=== PATIENT | female | born 1995 | race Caucasian/White ===

== ENCOUNTER 2017-11-06 15:09 | Emergency (ER) | payer OTHER ==
--- NOTE | 2017-11-06 15:45 | ER Document Report ---
ED Medical Screen (RME) - General Chief Complaint: Pelvic Pain Stated Complaint: PELVIC PAIN Time Seen by Provider: 11/06/17 15:35 Notes: 22-year-old female patient reports being 6 weeks . No ultrasound yet. 2 days of left pelvic pain that is now radiating into the left anterior thigh. No bleeding. I have greeted and performed a rapid initial assessment of this patient. A comprehensive ED assessment and evaluation of the patient, analysis of test results and completion of the medical decision making process will be conducted by additional ED providers. TRAVEL OUTSIDE OF THE [place] IN LAST 30 DAYS: No Past Medical History - Social History Chew tobacco use (# tins/day): No Frequency of alcohol use: None Drug Abuse: None Renal/ Medical History: Denies: Hx Peritoneal Dialysis Past Surgical History: Reports: Hx Appendectomy Physical Exam - Vital signs Vitals: Temp Pulse Resp BP Pulse Ox 98.6 F 89 18 130/76 H 100 11/06/17 15:25 11/06/17 15:25 11/06/17 15:25 11/06/17 15:25 11/06/17 15:25 Course - Vital Signs Vital signs: Temp Pulse Resp BP Pulse Ox 98.6 F 89 18 130/76 H 100 11/06/17 15:25 11/06/17 15:25 11/06/17 15:25 11/06/17 15:25 11/06/17 15:25
[2017-11-06 16:18] LABS: ABSOLUTE EOSINOPHILS # (AUTO) 0.1 10^3/uL (0.0-0.6); ABSOLUTE LYMPHOCYTES (AUTO) 2.6 10^3/uL (0.5-4.7); ABSOLUTE MONOCYTES (AUTO) 1.1 10^3/uL (0.1-1.4); ABSOLUTE NEUT (AUTO) 4.4 10^3/uL (1.7-8.2); BASOPHILS % (AUTO) 0.4 % (0-2); EOSINOPHILS % (AUTO) 0.8 % (0-6); HEMATOCRIT 36.4 % (36.0-47.0); HEMOGLOBIN 12.5 g/dL (12.0-15.5); HGB HCT DIFFERENCE 1.1; LYMPHOCYTES % (AUTO) 31.4 % (13-45); MEAN CORPUSCULAR HEMOGLOBIN 30.2 pg (27.0-33.4); MEAN CORPUSCULAR HGB CONC 34.3 g/dL (32.0-36.0); MEAN CORPUSCULAR VOLUME 88 fl (80-97); MONOCYTES % (AUTO) 12.9 % (3-13); RED BLOOD COUNT 4.13 10^6/uL (3.72-5.28); RED CELL DISTRIBUTION WIDTH 12.9 % (11.5-14.0); SEGMENTED NEUTROPHILS % (AUTO) 54.5 % (42-78); WHITE BLOOD COUNT 8.2 10^3/uL (4.0-10.5)
[2017-11-06 16:34] LABS: APPEARANCE,URINE CLOUDY; BILIRUBIN,URINE NEGATIVE (NEGATIVE); GLUCOSE, URINE NEGATIVE (NEGATIVE); KETONES,URINE NEGATIVE (NEGATIVE); LEUKOCYTE ESTERASE,URINE LARGE (NEGATIVE); NITRITE,URINE NEGATIVE (NEGATIVE); PROTEIN,URINE NEGATIVE (NEGATIVE); URINE SPECIFIC GRAVITY 1.015; UROBILINOGEN,URINE NEGATIVE mg/dL (<2.0)
[2017-11-06 16:47] LABS: ALANINE AMINOTRANSFERASE 36 U/L (9-52); ALBUMIN 4.5 g/dL (3.5-5.0); ALKALINE PHOSPHATASE 70 U/L (38-126); ANION GAP 12 (5-19); ASPARTATE AMINO TRANSFERASE 28 U/L (14-36); BILIRUBIN,DIRECT 0.3 mg/dL (0.0-0.4); BILIRUBIN,TOTAL 0.7 mg/dL (0.2-1.3); BLOOD UREA NITROGEN 10 mg/dL (7-20); CALCIUM 9.6 mg/dL (8.4-10.2); CARBON DIOXIDE 26 mmol/L (22-30); CHLORIDE 102 mmol/L (98-107); CREATININE RESULT 0.72 mg/dL (0.52-1.25); GLUCOSE 91 mg/dL (75-110); POTASSIUM 4.3 mmol/L (3.6-5.0); SODIUM 139.9 mmol/L (137-145); TOTAL PROTEIN 7.3 g/dL (6.3-8.2)
--- NOTE | 2017-11-06 18:06 | ER Document Report ---
HPI - HPI Pain Level: 4 Notes: Patient is a 22-year-old female who presents the ED complaining of left back soreness and left lower pelvic discomfort 2 days. Patient states that she did notice one episode of spotting today, but that has since resolved. Patient states that she still eating and drinking without any difficulties. She is still urinating normally otherwise with a slight increase in frequency and having normal bowel movements. Patient is taking vitamins. Patient states that they just moved to the area recently and are scheduled for an appointment with an EPIC TRAINER in 2 weeks. Patient denies any other recent illness. Patient states that her pain is described as a soreness and does not radiate. + history of 1 miscarriage spring 2016 (pt did not know she was on nexplanon). Patient did have an appendectomy in the past. Patient denies any drug allergies. Denies any headache, fever, neck pain, URI, sore throat, chest pain, palpitations, syncope, cough, shortness of breath, wheeze, dyspnea, nausea/vomiting/diarrhea, urinary retention, dysuria, hematuria, loss of control of bowel or bladder, numbness/tingling, saddle anesthesia, muscle paralysis/weakness, or rash. - ROS Notes: REVIEW OF SYSTEMS: CONSTITUTIONAL : Denies fever, chills, or sweats. Denies recent illness. EENT: Denies eye, ear, throat, or mouth pain or symptoms. Denies nasal or sinus congestion or discharge. Denies throat, tongue, or mouth swelling or difficulty swallowing. CARDIOVASCULAR: Denies chest pain. Denies palpitations or racing or irregular heart beat. Denies ankle edema. RESPIRATORY: Denies cough, cold, or chest congestion. Denies shortness of breath, difficulty breathing, or wheezing. GASTROINTESTINAL: see hpi GENITOURINARY: see hpi FEMALE GENITOURINARY: see hpi MUSCULOSKELETAL: Denies back or neck pain or stiffness. Denies joint pain or swelling. SKIN: Denies rash, lesions or sores. NEUROLOGICAL: Denies confusion or altered mental status. Denies passing out or loss of consciousness. Denies dizziness or lightheadedness. Denies headache. Denies weakness or paralysis or loss of use of either side. Denies problems with gait or speech. Denies sensory loss, numbness, or tingling. Denies seizures. ALL OTHER SYSTEMS REVIEWED AND NEGATIVE. Dictation was performed using Dragon voice recognition software - DERM Skin Color: Normal, [place] Past Medical History - Social History Smoking Status: Never Smoker Chew tobacco use (# tins/day): No Frequency of alcohol use: None Drug Abuse: None Family History: Reviewed & Not Pertinent Patient has suicidal ideation: No Patient has homicidal ideation: No Renal/ Medical History: Denies: Hx Peritoneal Dialysis Past Surgical History: Reports: Hx Appendectomy Vertical Provider Document - CONSTITUTIONAL Agree With Documented VS: Yes Notes: PHYSICAL EXAMINATION: GENERAL: Well-appearing, well-nourished and in no acute distress. A&Ox4. Appears comfortable and moves w/o discomfort. LUNGS: Breath sounds clear to auscultation bilaterally and equal. No wheezes rales or rhonchi. HEART: Regular rate and rhythm without murmurs, rubs, gallops. ABDOMEN: Soft, nondistended abdomen. No guarding, no rebound. No masses appreciated. Normal bowel sounds present. + mild Lt CVA tenderness. + mild tenderness to palp to the left pelvic area. : deferred at this time Musculoskeletal: LE's b/l: FROM to passive/active. Strength 5+/5. Back: + mild tenderness to the left low back. No vertebral point tenderness or step-offs. No erythema or ecchymosis. SLR neg b/l. Extremities: No cyanosis, clubbing, or edema b/l. Peripheral pulses 2+. Capillary refill less than 3 seconds. NEUROLOGICAL: Normal speech, normal gait. Normal sensory, motor exams PSYCH: Normal mood, normal affect. SKIN: Warm, Dry, normal turgor, no rashes or lesions noted. - INFECTION CONTROL TRAVEL OUTSIDE OF THE [place] IN LAST 30 DAYS: No - RESPIRATORY O2 Sat by Pulse Oximetry: 100 Course - Re-evaluation Re-evalutation: 11/06/17 18:35 Patient is an afebrile, well-hydrated, 22-year-old female who presents to the ED with a suspected UTI and left lower pelvic pain not otherwise specified with ?threatened . Vitals are stable. PE is otherwise unremarkable. CBC, CMP unremarkable for any acute pathology. Patient has a beta-hCG at 8,017. Urine culture patient is tolerating p.o. without any difficulties. Patient's pending. Transvaginal ultrasound was unremarkable for any acute pathology at this time. Low suspicion/risk for acute appendicitis, bowel obstruction, acute cholecystitis, acute cholangitis, perforated diverticulitis, incarcerated hernia , pancreatitis, perforated ulcer, peritonitis, sepsis, pelvic inflammatory disease, ectopic , tubo-ovarian abscess, ovarian torsion, ruptured/ expandin AAA, meningitis, cauda equina syndrome, disc herniation causing severe spinal stenosis, epidural mass lesion/abscess, or other systemic emergent condition at this time. Patient is aware that her condition can change from initial presentation and she needs to monitor symptoms closely and seek medical attention if any acute changes. I will send her home with keflex to take as directed. Conservative measures otherwise for symptoms. Recheck with OBGYN in 2-3 days. Recheck with your PCM in 3-5 days. Return to the ED with any worsening/concerning symptoms otherwise as reviewed in discharge. Patient is in agreement. - Vital Signs Vital signs: Temp Pulse Resp BP Pulse Ox 98.6 F 89 18 130/76 H 100 11/06/17 15:25 11/06/17 15:25 11/06/17 15:25 11/06/17 15:25 11/06/17 15:25 - Laboratory Result Diagrams: 11/06/17 15:58 11/06/17 15:58 Laboratory results interpreted by me: 11/06/17 11/06/17 15:58 15:58 Beta HCG, Quant 8017.00 H Ur Leukocyte Esterase LARGE H Urine Ascorbic Acid 40 H Discharge - Discharge Clinical Impression: UTI (urinary tract infection) Qualifiers: Urinary tract infection type: site unspecified Hematuria presence: without hematuria Qualified Code(s): N39.0 - Urinary tract infection, site not specified Condition: Stable Disposition: HOME, SELF-CARE Instructions: Bleeding During Early ([facility]), Cephalexin ([facility]), Ob-Lace Cutter Doctors, Pelvic Pain in ([facility]) Additional Instructions: Maintain adequate fluid intake Maintain a healthy diet continue vitamins Take antibiotics as directed Your urine culture is pending and will be available in 2 days Monitor for any worsening symptoms Recheck with the EPIC TRAINER in 2-3 days Recheck with your PCM in 1 week Return to the ED with any worsening symptoms and/or development of fever, headache, chest pain, palpitations, syncope, shortness of breath, trouble breathing, abdominal pain, n/v/d, blood in stool/urine, vaginal bleeding, pelvic cramping or worsening pain, loss of control of bowel/bladder, urinary retention, muscle weakness/paralysis, saddle anesthesia, numbness/tingling, or other worsening symptoms that are concerning to you. Prescriptions: Cephalexin Monohydrate [Keflex 500 mg Capsule] 500 mg PO BID #20 capsule Forms: Elevated Blood Pressure Referrals: [facility] [Provider Group] - 11/08/17 [facility] [Provider Group] - Follow up as needed [facility] [Provider Group] - Follow up as needed
--- NOTE | 2017-11-06 18:23 | RADIOLOGY REPORT (SQ) ---
EXAM DESCRIPTION: U/S OB TRANSVAGINAL W/O DOP COMPLETED DATE/TIME: 11/06/2017 6:04 pm REASON FOR STUDY: 6wks, 2 days L pelvic pain COMPARISON: None. TECHNIQUE: Transvaginal static and realtime grayscale images acquired of the pelvis. Additional sean cted spectral and color Doppler images recorded. All images stored on PACs. bHCG: Not available. LIMITATIONS: None. FINDINGS: FETUS: pole not seen. Yolk sac not seen. No cardiac motion. . EGA: 5 weeks 5 days based upon the size of what appears to be the gestational sac. JOHNATHAN: 07/04/2018 FHR: Not present beats per minute. SUBCHORIONIC BLEED: No SIZE OF BLEED: Not applicable. UTERUS: No masses. No anomalies. CERVICAL LENGTH: 2.1 cm. Closed. RIGHT ADNEXA: Ovary not seen. No adnexal free fluid. No adnexal masses. LEFT ADNEXA: Ovary not seen. No adnexal free fluid. No adnexal masses. FREE FLUID: None. OTHER: No other significant finding. IMPRESSION: There appears to be an intrauterine gestational sac. The size suggested gestation 5 wee ks 5 days. pole and yolk sac were not present. Heart motion is not seen. Follow-up as clinic ally indicated. Trimester of : First - 0 to 13 weeks. TECHNICAL DOCUMENTATION: JOB ID: [id number]- All Rights Reserved
[2017-11-06 19:40] VITALS: BP 125/75
== END 2017-11-06 19:41 | disposition home or self-care (01) ==
LOC: ER 15:09
DX: O23.41 Unspecified infection of urinary tract in pregnancy, first trimester (principal); O26.851 Spotting complicating pregnancy, first trimester; O26.891 Other specified pregnancy related conditions, first trimester; R10.2 Pelvic and perineal pain
CPT/HCPCS: 36415; 76817; 80053; 81001; 84702; 85025; 87086; 99284

== ENCOUNTER 2018-01-08 22:18 | Emergency (ER) | payer OTHER, MEDICAID ==
[2018-01-09] MEDS ORDERED: PROMETHAZINE HCL 25 MG TABLET PO ONE (00:49)
--- NOTE | 2018-01-09 00:51 | ER Document Report ---
ED Medical Screen (RME) - General Chief Complaint: Vomiting Stated Complaint: STOMACH PAIN,WEAKNESS Time Seen by Provider: 01/09/18 00:48 Mode of Arrival: Ambulatory Information source: Patient Notes: 21-year-old female presents to ED for abdominal pain nausea vomiting and diarrhea that all started this morning. She is 15 weeks . 1 para 0. She states that she was vomiting every day until 3 weeks ago when she started likely just. She has not vomited since then until this morning. Pulse in the triage room is 110 sats 99 blood pressure is 118/75 and temperature is 99.3. She states she does feel a little lightheaded from not eating or drinking. Patient will be given some Phenergan and blood in urine drawn. I have greeted and performed a rapid initial assessment of this patient. A comprehensive ED assessment and evaluation of the patient, analysis of test results and completion of medical decision making process will be conducted by an additional ED providers. TRAVEL OUTSIDE OF THE [place] IN LAST 30 DAYS: No - Related Data Allergies/Adverse Reactions: No Known Allergies Allergy (Verified 11/06/17 15:59) Past Medical History Renal/ Medical History: Denies: Hx Peritoneal Dialysis Past Surgical History: Reports: Hx Appendectomy Physical Exam - Vital signs Vitals: Temp Pulse Resp BP Pulse Ox 99.3 F 110 H 18 118/75 98 01/09/18 00:47 01/09/18 00:47 01/09/18 00:47 01/09/18 00:47 01/09/18 00:47 Course - Vital Signs Vital signs: Temp Pulse Resp BP Pulse Ox 99.3 F 110 H 18 118/75 98 01/09/18 00:47 01/09/18 00:47 01/09/18 00:47 01/09/18 00:47 01/09/18 00:47
[2018-01-09 03:38] LABS: ABSOLUTE LYMPHOCYTES (AUTO) 0.8 10^3/uL (0.5-4.7); ABSOLUTE MONOCYTES (AUTO) 0.5 10^3/uL (0.1-1.4); ABSOLUTE NEUT (AUTO) 7.6 10^3/uL (1.7-8.2); BASOPHILS % (AUTO) 0.3 % (0-2); EOSINOPHILS % (AUTO) 0.1 % (0-6); HEMATOCRIT 37.7 % (36.0-47.0); HEMOGLOBIN 12.9 g/dL (12.0-15.5); LYMPHOCYTES % (AUTO) 8.8 % (13-45); MEAN CORPUSCULAR HEMOGLOBIN 29.9 pg (27.0-33.4); MEAN CORPUSCULAR HGB CONC 34.2 g/dL (32.0-36.0); MEAN CORPUSCULAR VOLUME 87 fl (80-97); MONOCYTES % (AUTO) 5.4 % (3-13); PLATELET COUNT 210 10^3/uL (150-450); RED BLOOD COUNT 4.32 10^6/uL (3.72-5.28); RED CELL DISTRIBUTION WIDTH 12.9 % (11.5-14.0); SEGMENTED NEUTROPHILS % (AUTO) 85.4 % (42-78); TOTAL CELLS COUNTED % (AUTO) 100 %
[2018-01-09 03:55] LABS: ALANINE AMINOTRANSFERASE 35 U/L (9-52); ALBUMIN 4.3 g/dL (3.5-5.0); ALKALINE PHOSPHATASE 57 U/L (38-126); ANION GAP 12 (5-19); ASPARTATE AMINO TRANSFERASE 28 U/L (14-36); BILIRUBIN,DIRECT 0.3 mg/dL (0.0-0.4); BLOOD UREA NITROGEN 9 mg/dL (7-20); CALCIUM 10.4 mg/dL (8.4-10.2); CARBON DIOXIDE 23 mmol/L (22-30); CHLORIDE 103 mmol/L (98-107); GLUCOSE 102 mg/dL (75-110); LIPASE 76.3 U/L (23-300); SODIUM 137.6 mmol/L (137-145); TOTAL PROTEIN 7.5 g/dL (6.3-8.2)
[2018-01-09 04:00] LABS: APPEARANCE,URINE CLOUDY; BILIRUBIN,URINE NEGATIVE (NEGATIVE); GLUCOSE, URINE NEGATIVE (NEGATIVE); KETONES,URINE 80 mg/dL (NEGATIVE); LEUKOCYTE ESTERASE,URINE SMALL (NEGATIVE); NITRITE,URINE NEGATIVE (NEGATIVE); PROTEIN,URINE 30 mg/dL (NEGATIVE); URINE SPECIFIC GRAVITY 1.031
[2018-01-09 04:02] LABS: COLOR,URINE DARK YELLOW
[2018-01-09] MEDS: NORMAL SALINE 1000 ML 1,000 ML IV PRN ×2 (06:27→06:50)
[2018-01-09] MEDS ORDERED: DIPHENHYDRAMINE HCL 50 MG/ML VIAL IV ONE (07:27)
[2018-01-09] MEDS ORDERED: METOCLOPRAMIDE HCL INJ/PF 10 MG/2 ML SDV IV ONE (07:27)
--- NOTE | 2018-01-09 09:30 | ER Document Report ---
ED General - General Chief Complaint: Vomiting Stated Complaint: STOMACH PAIN,WEAKNESS Time Seen by Provider: 01/09/18 00:48 Mode of Arrival: Ambulatory TRAVEL OUTSIDE OF THE [place] IN LAST 30 DAYS: No - HPI Patient complains to provider of: Nausea vomiting diarrhea Notes: Patient coming in approximately 15 weeks states she is having nausea vomiting diarrhea. Patient states she initially during first did havePatient coming in approximately 15 weeks states she is having nausea vomiting diarrhea. Patient states she initially during the first few days the did have nausea vomiting however the past patient states was doing better however now is vomiting unable to tolerate anything p.o. Patient is on likely just states that is not relieving her symptoms. Patient was seen in triage and given a tablet of Phenergan however states she threw this up as well. Denies any recent travel denies any sick contacts. Denies fevers chills - Related Data Allergies/Adverse Reactions: No Known Allergies Allergy (Verified 11/06/17 15:59) Past Medical History - General Information source: Patient - Social History Smoking Status: Never Smoker Family History: Reviewed & Not Pertinent Patient has suicidal ideation: No Patient has homicidal ideation: No Renal/ Medical History: Denies: Hx Peritoneal Dialysis Past Surgical History: Reports: Hx Appendectomy Review of Systems - Review of Systems Constitutional: No symptoms reported EENT: No symptoms reported Cardiovascular: No symptoms reported Respiratory: No symptoms reported Gastrointestinal: Nausea, Vomiting Genitourinary: No symptoms reported Female Genitourinary: No symptoms reported Musculoskeletal: No symptoms reported Skin: No symptoms reported Hematologic/Lymphatic: No symptoms reported Neurological/Psychological: No symptoms reported -: Yes All other systems reviewed and negative Physical Exam - Vital signs Vitals: Temp Pulse Resp BP Pulse Ox 99.3 F 110 H 18 118/75 98 01/09/18 00:47 01/09/18 00:47 01/09/18 00:47 01/09/18 00:47 01/09/18 00:47 Interpretation: Normal - General General appearance: Appears well, Alert - HEENT Head: Normocephalic, Atraumatic Eyes: Normal Pupils: PERRL - Respiratory Respiratory status: No respiratory distress Chest status: Nontender Breath sounds: Normal Chest palpation: Normal - Cardiovascular Rhythm: Regular Heart sounds: Normal auscultation Murmur: No - Abdominal Inspection: Normal Distension: No distension Bowel sounds: Normal Tenderness: Nontender Organomegaly: No organomegaly - Back Back: Normal, Nontender - Extremities General upper extremity: Normal inspection, Nontender, Normal color, Normal ROM , Normal temperature General lower extremity: Normal inspection, Nontender, Normal color, Normal ROM , Normal temperature, Normal weight bearing. No: Xiomara's sign - Neurological Neuro grossly intact: Yes Cognition: Normal Orientation: AAOx4 [place] Coma Scale Eye Opening: Spontaneous [place] Coma Scale Verbal: Oriented [place] Coma Scale Motor: Obeys Commands [place] Coma Scale Total: 15 Speech: Normal Motor strength normal: LUE, RUE, LLE, RLE Sensory: Normal - Psychological Associated symptoms: Normal affect, Normal mood - Skin Skin Temperature: Warm Skin Moisture: Dry Skin Color: Normal Course - Re-evaluation Re-evalutation: 01/09/18 14:57 heart tones 160 on bedside ultrasound. Patient was given IV fluids. After IV fluids along with Reglan patient was able tolerate p.o. Will discharge patient home with Zofran and Reglan. Patient is follow-up with OB/ [facility]. - Vital Signs Vital signs: Temp Pulse Resp BP Pulse Ox 99.6 F 100 18 124/62 98 01/09/18 06:57 01/09/18 09:45 01/09/18 09:45 01/09/18 09:45 01/09/18 09:45 - Laboratory Result Diagrams: 01/09/18 03:30 01/09/18 03:30 Laboratory results interpreted by me: 01/09/18 01/09/18 01/09/18 03:30 03:30 03:30 Seg Neutrophils % 85.4 H Lymphocytes % 8.8 L Calcium 10.4 H Urine Protein 30 H Urine Ketones 80 H Urine Urobilinogen 2.0 H Ur Leukocyte Esterase SMALL H Urine Ascorbic Acid 20 H Urine HCG, Qual POSITIVE H Discharge - Discharge Clinical Impression: Vomiting affecting Disposition: HOME, SELF-CARE Instructions: Reglan (OM), Vomiting (OM) Additional Instructions: Please take medication as prescribed. Return to the ER symptoms worsen. For nausea and vomiting during I recomment: Start with 10-12.5 mg of pyridoxine (vitamin B6) three times a day for 2 days. If not fully effective, Increase to 12.5 mg of pyridoxine four times a day for 2 days. If not fully effective, Increase to 25 mg of pyridoxine three times a day for 2 days. If not fully effective, Continue 25 mg pyridoxine 3 times a day, and add 12.5 mg of doxylamine before bedtime each day for 2 days. If not fully effective, Continue 25 mg pyridoxine 3 times a day, and take 12.5 mg of doxylamine twice a day. If not fully effective, Continue 25 mg pyridoxine 3 times a day, and take 12.5 mg of doxylamine three times a day. If not fully effective, Continue 25 mg pyridoxine 3 times a day, and 12.5 mg of doxylamine 3 times a day , while adding Emetrol, one to two tablespoons (15-30 cc) taken once or twice a day as needed. (Emetrol is an [id number] mixture of sugar syrups and phosphoric acid [phosphorylated carbohydrate solution]) that acts by soothing the actual wall of the gastrointestinal tract). If not fully effective, Consult with your doctor. Prescriptions: Metoclopramide HCl [Reglan] 5 mg PO Q6 #30 tablet Ondansetron [Zofran Odt] 4 mg PO Q6 PRN #30 tab.rapdis PRN Reason: For Nausea/Vomiting Promethazine HCl [Phenergan 25 mg Supp.rect] 1 supp LA Q6H #10 supp.rect Referrals: FRANDY SEALS MD [Primary Care Provider] - Follow up as needed
[2018-01-09 09:59] VITALS: BP 124/62
== END 2018-01-09 09:45 | disposition home or self-care (01) ==
LOC: ER 22:18
DX: O21.9 Vomiting of pregnancy, unspecified (principal); Z3A.15 15 weeks gestation of pregnancy
CPT/HCPCS: 99284; 96360; 36415; 83690; 85025; 81025; 80053; 81001; J1200; J2765; J7030

== ENCOUNTER 2018-06-06 13:14 | Outpatient (CLI) | payer MEDICAID ==
[2018-06-06 14:59] LABS: APPEARANCE,URINE CLOUDY; BILIRUBIN,URINE NEGATIVE (NEGATIVE); GLUCOSE, URINE NEGATIVE (NEGATIVE); KETONES,URINE NEGATIVE (NEGATIVE); LEUKOCYTE ESTERASE,URINE LARGE (NEGATIVE); NITRITE,URINE NEGATIVE (NEGATIVE); PROTEIN,URINE 30 mg/dL (NEGATIVE); URINE SPECIFIC GRAVITY 1.017
[2018-06-06 15:00] LABS: COLOR,URINE YELLOW
[2018-06-06 15:08] LABS: URINE AMPHETAMINES SCREEN NEGATIVE; URINE BENZODIAZEPINES SCREEN NEGATIVE; URINE COCAINE SCREEN NEGATIVE; URINE MARIJUANA (THC) SCREEN NEGATIVE; URINE METHADONE SCREEN NEGATIVE; URINE PHENCYCLIDINE SCREEN NEGATIVE
[2018-06-06 15:13] LABS: URINE BARBITURATES SCREEN UNCONFIRMED POSITIVE
[2018-06-06] MEDS ORDERED: RINGERS SOLUTION,LACTATED 1,000 ML IV PRN (15:24)
[2018-06-06] MEDS ORDERED: CEFTRIAXONE INJ 1000 MG VIAL IV ONE (15:24)
[2018-06-06] MEDS ORDERED: RINGERS SOLUTION,LACTATED 1,000 ML IV ONE (15:24)
[2018-06-06] MEDS ORDERED: CEFTRIAXONE INJ 1000 MG VIAL ONE (15:40)
[2018-06-06] MEDS ORDERED: CEFTRIAXONE SODIUM 1,000 MG in DEXTROSE 5%-WATER 50 ML IV ONE (16:00)
--- NOTE | 2018-06-06 17:22 | Non Stress Test Report ---
Non Stress Test Datetime Report Generated by CPN: 06/06/2018 17:22 DEMOGRAPHIC EGA NST: 35.2 INDICATION Indication for Study: labor; Ordered by Provider VITAL SIGNS Temperature - NST: 98.3 Pulse - NST: 106 RESP - NST: 14 NBPSYS NST: 122 NBPDIA NST: 76 MONITORING Monitor Explained: Monitor Explained; Test Explained; Patient Verbalized Understanding Time on Monitor: 06/06/2018 13:30 Time off Monitor: 06/06/2018 15:49 NST Duration: 139 NST INTERVENTIONS NST Interventions: PO Hydration; Reposition Patient Physician Notified NST: Dr. Brock BABY A: [id number] BABY A Movement : Present Contraction Frequency : rare FHR Baseline : 130 Accelerations : 15X15 Decelerations : None Variability : Moderate 6-25bpm NST Review: Meets Criteria for Reactive NST NST Review and Verified By : DULCE Norris Results: Reactive NST REPORT Report Trigger: Send Report
== END 2018-06-06 17:25 | disposition home or self-care (01) ==
LOC: LC 13:14
PROVIDERS: ATTEND Student in an Organized Health Care Education/Training Program
PROC: 4A1HXCZ Monitoring of Products of Conception, Cardiac Rate, External Approach (ICD-10-PCS; principal; 2018-06-06)
DX: O47.03 False labor before 37 completed weeks of gestation, third trimester (principal); O23.43 Unspecified infection of urinary tract in pregnancy, third trimester; O99.283 Endocrine, nutritional and metabolic diseases complicating pregnancy, third trimester; E86.0 Dehydration; Z3A.35 35 weeks gestation of pregnancy
CPT/HCPCS: 59025; 87086; 81001; 80307; J0696

== ENCOUNTER 2018-06-11 15:02 | Outpatient (CLI) | payer MEDICAID ==
[2018-06-11 16:07] LABS: AMNISURE (ROM) NEGATIVE (NEGATIVE)
--- NOTE | 2018-06-11 16:32 | Non Stress Test Report ---
Non Stress Test Datetime Report Generated by CPN: 06/11/2018 16:31 DEMOGRAPHIC EGA NST: 36.0 INDICATION Indication for Study: Other Indication for Study (NST) Other: labor check VITAL SIGNS Temperature - NST: 98.5 Pulse - NST: 83 RESP - NST: 14 NBPSYS NST: 120 NBPDIA NST: 74 MONITORING Monitor Explained: Monitor Explained; Test Explained; Patient Verbalized Understanding Time on Monitor: 06/11/2018 15:35 Time off Monitor: 06/11/2018 16:18 NST Duration: 43 NST INTERVENTIONS NST Interventions: PO Hydration BABY A: [id number] BABY A Movement : Present Contraction Frequency : rare FHR Baseline : 135 Accelerations : 15X15 Decelerations : None Variability : Moderate 6-25bpm NST Review: Meets Criteria for Reactive NST NST Review and Verified By : Virginia Garrido RN NST Results: Reactive NST REPORT Report Trigger: Send Report
== END 2018-06-11 16:20 | disposition home or self-care (01) ==
LOC: LC 15:02
PROVIDERS: ATTEND Obstetrics & Gynecology
PROC: 4A1HXCZ Monitoring of Products of Conception, Cardiac Rate, External Approach (ICD-10-PCS; principal; 2018-06-11)
DX: Z36.89 Encounter for other specified antenatal screening (principal)
CPT/HCPCS: 59025; 84112; Q0114

== ENCOUNTER 2018-06-11 23:00 | Inpatient (IN) | payer MEDICAID ==
[2018-06-11] MEDS ORDERED: RINGERS SOLUTION,LACTATED 1,000 ML IV ONE (23:46)
[2018-06-11] MEDS ORDERED: PENICILLIN G POTASSIUM 5,000,000 UNIT in DEXTROSE 5%-WATER 100 ML IV ONE (23:46)
[2018-06-11] MEDS ORDERED: RINGERS SOLUTION,LACTATED 1,000 ML IV PRN (23:46)
[2018-06-11 23:59] LABS: APPEARANCE,URINE CLEAR; BILIRUBIN,URINE NEGATIVE (NEGATIVE); COLOR,URINE YELLOW; GLUCOSE, URINE NEGATIVE (NEGATIVE); KETONES,URINE NEGATIVE (NEGATIVE); LEUKOCYTE ESTERASE,URINE TRACE (NEGATIVE); NITRITE,URINE NEGATIVE (NEGATIVE); PROTEIN,URINE NEGATIVE (NEGATIVE); UROBILINOGEN,URINE NEGATIVE mg/dL (<2.0)
[2018-06-12 00:10] LABS: ABSOLUTE EOSINOPHILS # (AUTO) 0.1 10^3/uL (0.0-0.6); ABSOLUTE LYMPHOCYTES (AUTO) 2.8 10^3/uL (0.5-4.7); ABSOLUTE MONOCYTES (AUTO) 1.4 10^3/uL (0.1-1.4); ABSOLUTE NEUT (AUTO) 7.4 10^3/uL (1.7-8.2); BASOPHILS % (AUTO) 0.3 % (0-2); EOSINOPHILS % (AUTO) 0.9 % (0-6); HEMOGLOBIN 10.6 g/dL (12.0-15.5); LYMPHOCYTES % (AUTO) 23.7 % (13-45); MEAN CORPUSCULAR HEMOGLOBIN 30.2 pg (27.0-33.4); MEAN CORPUSCULAR HGB CONC 34.1 g/dL (32.0-36.0); MEAN CORPUSCULAR VOLUME 88 fl (80-97); PLATELET COUNT 211 10^3/uL (150-450); RED CELL DISTRIBUTION WIDTH 13.4 % (11.5-14.0); SEGMENTED NEUTROPHILS % (AUTO) 63.1 % (42-78); TOTAL CELLS COUNTED % (AUTO) 100 %; WHITE BLOOD COUNT 11.7 10^3/uL (4.0-10.5)
[2018-06-12] MEDS ORDERED: PENICILLIN G-K 5 MILLION UNIT VIAL ONE ×2 (00:24→04:34)
[2018-06-12] MEDS ORDERED: MISOPROSTOL 0.2 MG TABLET ONE (00:33)
[2018-06-12] MEDS ORDERED: LIDOCAINE 1% INJ-PF (10 MG/ML) 30 ML SDV ONE (00:33)
[2018-06-12] MEDS ORDERED: OXYTOCIN/NORMAL SALINE 20 UNIT/1,000 ML RTUINJ ONE (00:33)
[2018-06-12 00:38] LABS: URINE AMPHETAMINES SCREEN NEGATIVE; URINE BARBITURATES SCREEN NEGATIVE; URINE BENZODIAZEPINES SCREEN NEGATIVE; URINE COCAINE SCREEN NEGATIVE; URINE MARIJUANA (THC) SCREEN NEGATIVE; URINE METHADONE SCREEN NEGATIVE; URINE PHENCYCLIDINE SCREEN NEGATIVE
[2018-06-12] MEDS ORDERED: MAG HYDROX/AL HYDROX/SIMETH SUSP 30 ML UDCUP ONE (02:28)
[2018-06-12] MEDS ORDERED: MAG HYDROX/AL HYDROX/SIMETH SUSP 30 ML UDCUP PO ONE (02:30)
[2018-06-12] MEDS ORDERED: PENICILLIN G POTASSIUM 2,500,000 UNIT in DEXTROSE 5%-WATER 50 ML IV SCH (03:46)
[2018-06-12] MEDS ORDERED: EPHEDRINE SULFATE INJ 50 MG/1 ML AMPULE ONE (04:54)
[2018-06-12] MEDS ORDERED: BUPIVACAINE HCL 0.25 % INJ/PF (2.5 MG/1 ML) 30 ML VIAL ONE (04:54)
[2018-06-12] MEDS ORDERED: FENTANYL/BUPIVACAINE/NS/PF 300 MCG/150 ML RTUINJ EPI ONE (04:54)
[2018-06-12] MEDS ORDERED: OXYTOCIN/NORMAL SALINE 20 UNIT/1,000 ML RTUINJ IV PRN ×2 (04:56→07:40)
[2018-06-12] MEDS ORDERED: FENTANYL CITRATE INJ/PF 100 MCG/2 ML AMPUL ONE (05:18)
--- NOTE | 2018-06-12 07:06 | Admission Physical ---
Datetime Report Generated by CPN: 06/12/2018 07:06 CURRENT ADMISSION Chief Complaint: Uterine Contractions; Suspected Ruptured Membranes Indication for Induction: PROM Admit Impression : , Intrauterine ; Ruptured Membranes Admit Plan: Admit to Unit; Initiate Labor Augmentation Protocol ALLERGIES Medication Allergies: No Medication Allergies: No Known Allergies (06/12/2018) Latex: No Latex Allergies OBSTETRICAL HISTORY EDC: 07/09/2018 00:00 : 1 Para: 0 Term: 0 : 0 SAB: 0 IAB: 0 Ectopic: 0 Livin Cesareans: 0 VBACs: 0 Multiple Births: 0 Gestational Diabetes: No Rh Sensitization: No Incompetent Cervix: No FLORENTIN: No Infertility: No ART Treatment: No Uterine Anomaly: No IUGR: No Hx Previous C/S: No Macrosomia: No Hx Loss/Stillborn: No PIH: No Hx : No Placenta Previa/Abruption: No Depression/PP Depression: No PTL/PROM: No Post Hemorrhage: No Current Procedures: Ultrasound; NST Obstetrical History Comments: primigravida SEE RECORDS Alcohol: No Marijuana : No Cocaine: No Other Illicit Drugs: No Cigarettes: Former Smoker. [id number] MEDICAL HISTORY Diabetes: No Blood Transfusion: No Pulmonary Disease (Asthma, TB): No Breast Disease: No Hypertension: No Secondary Connector Armature Surgery: No Heart Disease: No Hosp/Surgery: No Autoimmune Disorder: No Anesthetic Complications: No Kidney Disease: Yes Abnormal Pap Smear: No Neuro/Epilepsy: No Psychiatric Disorders: No Other Medical Diseases: No Hepatitis/Liver Disease: No Significant Family History: No Varicosities/Phlebitis: No Trauma/Violence : No Thyroid Dysfunction: No Medical History Comments: h/o migraines-on fioricet, GERD on zantac; failed 1hr gtt, passed 3 hour INFECTIOUS HISTORY Gonorrhea: No Genital Herpes: No Chlamydia: No Tuberculosis: No Syphilis: No Hepatitis: No HIV/AIDS Exposure: No Rash or Viral Illness: No HPV: No PHYSICAL EXAM General: Normal HEENT: Normal Neurologic: Normal Thyroid: Normal Heart: Normal Lungs: Normal Breast: Normal Back: Normal Abdomen: Normal Genitourinary Exam: Normal Extremities: Normal DTRs: Normal Pelvic Type: Adequate Vital Signs: Reviewed; Within Normal Limits VAGINAL EXAM Dilatation: 6 Effacement: 100 Station: -1 MEMBRANES Pooling: Positive Membranes: Ruptured Amniotic Fluid Color: Clear FETUS A EGA: 36.1 Monitoring: External US FHR- Baseline: 140 Variability: Moderate 6-25bpm Accelerations: 15X15 Decelerations: None FHR Category: Category I Estimated Weight (gm): 3200 Presentation: Vertex PLANS FOR LABOR AND DELIVERY Labor and Delivery: None Pain Management: Epidural Feeding Preference: Breast Benefit of Breast Feed Discussed: Yes Circumcision: N/A INFORMED CONSENT Signature: with User ID: [email or web address]
[2018-06-12] MEDS ORDERED: ACETAMINOPHEN 650 MG SUPP.RECT PR PRN (07:40)
[2018-06-12] MEDS ORDERED: MAGNESIUM HYDROXIDE SUSP 30 ML UDCUP PO PRN (07:40)
[2018-06-12] MEDS ORDERED: NA PHOS,M-B/NA PHOS,DI-BA (ADULT) 133 ML ENEMA PR PRN (07:40)
[2018-06-12] MEDS ORDERED: GLYCERIN/WITCH HAZEL LEAF 1 EACH MED..PAD TP PRN (07:40)
[2018-06-12] MEDS ORDERED: ACETAMINOPHEN WITH CODEINE #3 TABLET PO PRN ×2 (07:40)
[2018-06-12] MEDS ORDERED: ZOLPIDEM TARTRATE 5 MG TABLET PO PRN (07:40)
[2018-06-12] MEDS ORDERED: PROMETHAZINE HCL INJ 25 MG/1 ML VIAL IV PRN (07:40)
[2018-06-12] MEDS ORDERED: PROMETHAZINE HCL 25 MG TABLET PO PRN (07:40)
[2018-06-12] MEDS ORDERED: MEASLES,MUMPS&RUBELLA VACC/PF 0.5 ML VIAL SUBCUT PRN (07:40)
[2018-06-12] MEDS ORDERED: DIPHENHYDRAMINE HCL 25 MG CAPSULE PO PRN (07:40)
[2018-06-12] MEDS ORDERED: BENZOCAINE/MENTHOL AEROSOL SPRAY 56 ML TOP PRN (07:40)
[2018-06-12] MEDS ORDERED: DIBUCAINE 1% OINTMENT 28 GM TP PRN (07:40)
[2018-06-12] MEDS ORDERED: PROMETHAZINE HCL 25 MG SUPP.RECT PR PRN (07:40)
[2018-06-12] MEDS ORDERED: DIPH/PERTUSS(ACELL)/TETANUS VAC/PF 0.5 ML SYR (>=10YO) IM PRN (07:40)
[2018-06-12] MEDS ORDERED: PSEUDOEPHEDRINE HCL 30 MG TABLET PO PRN (07:40)
--- NOTE | 2018-06-12 09:09 | Delivery Summary ---
Del Sum A-C Datetime Report Generated by CPN: 06/12/2018 09:09 DELIVERY PERSONNEL DELIVERY PERSONNEL: [id number] Delivery Doctor:: Sariah Garrido MD Labor and Delivery Nurse:: Kaylynn Sewell RNstunner animal Nurse:: Alondra Hernandez RN Nursery Nurse:: Tamar Rivera RN MSN Cyber Defense Analyst/PUBLIC INFORMATION SPECIALIST: Blanquita Cameron, MACHINE SPRING FORMER MATERNAL INFORMATION Delivery Anesthesia: Epidural Medications After Delivery: Pitocin Drip 20 Units/1000ml NSS Estimated Blood Loss (ml): 300 Maternal Complications: Premature Rupture of Membranes LABOR SUMMARY EDC: 07/09/2018 00:00 No. Babies in Womb: 1 Attempted: No Labor Anesthesia: Epidural LABOR INFORMATION Reason for Induction: Not Applicable Onset of Labor: 06/11/2018 23:30 Complete Dilatation: 06/12/2018 06:08 Oxytocin: Augmentation Group B Beta Strep: unknown Antibiotics # of Doses: 2 Antibiotics Time of Last Dose: 04:40 Name of Antibiotic Given: penicillin Steroids Given: None Reason Steroids Not Administered: Not Applicable MEMBRANES Membranes Rupture Method: Spontaneous Rupture of Membranes: 06/11/2018 22:30 Length of Rupture (hr): 7.98 Amniotic Fluid Color: Clear Amniotic Fluid Amount: Moderate Amniotic Fluid Odor: None STAGES OF LABOR Stage 1 hr: 6 Stage 1 min: 38 Stage 2 hr: 0 Stage 2 min: 21 Stage 3 hr: 0 Stage 3 min: 4 Total Time in Labor hr: 7 Total Time in Labor min: 3 VAGINAL DELIVERY Episiotomy: None Laceration #1: None Laceration Extension #1: N/A Laceration Repair: Not Applicable Sponge Count Correct: N/A Sharps Count Correct: Yes CSECTION DELIVERY Primary Indication: N/A Secondary Indication: N/A CSection Incidence: N/A Labor: N/A Elective: N/A CSection Incision: N/A BABY A INFORMATION Delivery Date/Time: 06/12/2018 06:29 Method of Delivery: Vaginal Born in Route : No : N/A Forceps: N/A Vacuum Extraction: N/A Shoulder Dystocia : No PRESENTATION/POSITION BABY A Presentation: Cephalic Cephalic Presentation: Vertex Vertex Position: Left Occipital Anterior Breech Presentation: N/A PLACENTA INFORMATION BABY A Placenta Delivery Time : 06/12/2018 06:33 Placenta Method of Delivery: Spontaneous Placenta Status: Delivered SCORES BABY A Heart Rate 1 min: >100 bpm Resp Effort 1 min: Good Cry Reflex Irritability 1 min: Cough or Sneeze or Pulls Away Muscle Tone 1 min: Active Motion Color 1 min: Blue/Pale Resuscitation Effort 1 min: Tactile Stimulation SCORE 1 MIN: 8 Heart Rate 5 min: >100 bpm Resp Effort 5 min: Good Cry Reflex Irritability 5 min: Cough or Sneeze or Pulls Away Muscle Tone 5 min: Active Motion Color 5 min: Body [place], Extremities Blue Resuscitation Effort 5 min: Tactile Stimulation SCORE 5 MIN: 9 INFANT INFORMATION BABY A Gestational Age at Delivery: 36.1 Gestational Status: Late - 34- 36.6 Weeks Outcome : Liveborn Condition : Stable Sex: Female IDENTIFICATION BABY A Verification Date/Time: 06/12/2018 06:49 ID Band Number: [id number] Mother's Name Verified: Yes RN Verifying Infant: SChilo [place], RNC _ T. Mary, RN WEIGHT/LENGTH BABY A Infant Birthweight (gm): 2410 Weight (lb): 5 Infant Weight (oz): 5 Infant Length (in): 17.00 Length (cm): 43.18 CORD INFORMATION BABY A No. Cord Vessels: 3 Nuchal Cord : N/A Cord Blood Taken: Yes-For Storage (Mom's Blood type +) Infant Suction: Mouth; Nose ASSESSMENT BABY A Infant Complications: None Physical Findings at Delivery: Within Normal Limits Respirations: Appears Normal Skin to Skin: Yes Skin to Skin Time (min): 70 [employer] Librarian/ALS Called : No Care By: Shravan Rivera RN Transferred To: Remains with Mother BABY B INFORMATION : N/A SIGNATURES Signature: with User ID: [email or web address]
[2018-06-12] MEDS: FERROUS SULFATE 325 MG TABLET PO SCH ×2 (11:19→18:51)
[2018-06-12] MEDS: PRENATAL VITAMIN W DHA CAPSULE PO SCH (11:19)
[2018-06-12] MEDS: FAMOTIDINE 20 MG TABLET PO SCH ×2 (11:19→22:45)
[2018-06-12] MEDS: SENNOSIDES/DOCUSATE 8.6-50 MG 1 EACH TABLET PO SCH (11:20)
[2018-06-12] MEDS: DOCUSATE SODIUM 100 MG CAPSULE PO SCH ×2 (11:20→18:51)
[2018-06-12] MEDS: IBUPROFEN 800 MG TABLET PO SCH ×2 (14:24→22:44)
[2018-06-13] MEDS: IBUPROFEN 800 MG TABLET PO SCH ×3 (06:24→21:58)
[2018-06-13 07:47] LABS: HEMATOCRIT 32.8 % (36.0-47.0); MEAN CORPUSCULAR HGB CONC 33.6 g/dL (32.0-36.0); MEAN CORPUSCULAR VOLUME 89 fl (80-97); PLATELET COUNT 221 10^3/uL (150-450); RED BLOOD COUNT 3.68 10^6/uL (3.72-5.28); RED CELL DISTRIBUTION WIDTH 13.8 % (11.5-14.0); WHITE BLOOD COUNT 12.6 10^3/uL (4.0-10.5)
--- NOTE | 2018-06-13 09:49 | PDOC PROGRESS REPORT ---
Subjective-OB Progress Note for:: 06/13/18 Subjective: pt states she feels well some nipple pain with breast feeding no other problems Physical Exam (OB) Vital Signs: Temp Pulse Resp BP Pulse Ox 97.7 F 74 16 121/72 98 06/13/18 08:00 06/13/18 08:00 06/13/18 08:00 06/13/18 08:00 06/13/18 08:00 Intake & Output 06/12/18 06/13/18 06/14/18 06:59 06:59 06:59 Intake Total 500 Balance 500 Weight 82.2 kg - Lochia Lochia Amount: Scant < 10 ml Lochia Color: Rubra/Red - Abdomen Description: Soft, Round Hernia Present: No Bowel Sounds: Normoactive Flatus Presence: Present Stool: Yes Fundal Description: Firm, Midline Fundal Height: u/u - u/2 - Respiratory Breath sounds: Clear - Extremities Calf: Normal, Nontender Objective-Diagnostic Laboratory: 06/13/18 07:30 06/13/18 07:30 WBC 12.6 H RBC 3.68 L Hgb 11.0 L Hct 32.8 L MCV 89 MCH 30.0 MCHC 33.6 RDW 13.8 Plt Count 221 Assessment and Plan(PN) - Assessment and Plan (1) premature rupture of membranes Is this a current diagnosis for this admission?: Yes - Time Spent with Patient Time with patient: Less than 15 minutes - Disposition Anticipated Discharge: Home Within: within 24 hours Disposition: continue present plan of managment
--- NOTE | 2018-06-13 10:37 | PDOC DISCHARGE SUMMARY ---
Final Diagnosis Discharge Date: 06/14/18 - Final Diagnosis (1) premature rupture of membranes Is this a current diagnosis for this admission?: Yes (2) Vaginal delivery Is this a current diagnosis for this admission?: Yes Discharge Data - Discharge Medication Home Medications: Vit Calc,Iron,Folic [ Vitamins] 1 tab PO DAILY 11/06/17 Doxylamine Succinate/Vit B6 [Diclegis Dr 10-10 mg Tablet] 1 each PO ASDIR PRN Reason(s) for Admission: PROM, Labor Procedures: NST Intrapartum Procedure(s): Spontaneous Vaginal Delivery - Diagnosis Test Laboratory: Temp Pulse Resp BP Pulse Ox 97.7 F 74 16 121/72 98 06/13/18 08:00 06/13/18 08:00 06/13/18 08:00 06/13/18 08:00 06/13/18 08:00 06/11/18 06/11/18 06/13/18 23:20 23:59 07:30 RBC 3.50 L 3.68 L Hgb 10.6 L 11.0 L Hct 31.0 L 32.8 L Urine Opiates Screen NEGATIVE - Discharge information/Instructions Discharge Activity: Balance Activity w/Rest, Pelvic Rest Discharge Diet: Regular Disposition: HOME, SELF-CARE Follow up with: [facility] in: 4, Weeks
[2018-06-13] MEDS: PRENATAL VITAMIN W DHA CAPSULE PO SCH (10:49)
[2018-06-13] MEDS: DOCUSATE SODIUM 100 MG CAPSULE PO SCH ×2 (10:50→18:03)
[2018-06-13] MEDS: SENNOSIDES/DOCUSATE 8.6-50 MG 1 EACH TABLET PO SCH (10:50)
[2018-06-13] MEDS: FERROUS SULFATE 325 MG TABLET PO SCH ×2 (10:50→18:03)
[2018-06-13] MEDS: FAMOTIDINE 20 MG TABLET PO SCH ×2 (10:53→21:59)
[2018-06-14] MEDS: IBUPROFEN 800 MG TABLET PO SCH (06:47)
[2018-06-14] MEDS: FAMOTIDINE 20 MG TABLET PO SCH (10:44)
[2018-06-14] MEDS: FERROUS SULFATE 325 MG TABLET PO SCH (10:44)
[2018-06-14] MEDS: DOCUSATE SODIUM 100 MG CAPSULE PO SCH (10:44)
[2018-06-14] MEDS: SENNOSIDES/DOCUSATE 8.6-50 MG 1 EACH TABLET PO SCH (10:44)
[2018-06-14] MEDS: PRENATAL VITAMIN W DHA CAPSULE PO SCH (10:46)
[2018-06-14 11:53] VITALS: BP 120/66
== END 2018-06-14 13:08 | disposition home or self-care (01) | DRG 775 ==
LOC: LC 23:00 → LR 23:45 → 2S 06-12 09:00
PROVIDERS: ADMIT Obstetrics & Gynecology; ATTEND Obstetrics & Gynecology
PROC: 10E0XZZ Delivery of Products of Conception, External Approach (ICD-10-PCS; principal; 2018-06-12)
DX: O42.013 Preterm premature rupture of membranes, onset of labor within 24 hours of rupture, third trimester (principal); Z3A.36 36 weeks gestation of pregnancy; Z37.0 Single live birth
CPT/HCPCS: 36415; 80307; 81005; 85025; 85027; 86592; 86850; 86900; 86901; J2540; J2590; J3010; J3490

== ENCOUNTER 2018-07-09 21:52 | Emergency (ER) | payer MEDICAID ==
--- NOTE | 2018-07-09 23:25 | ER Document Report ---
ED Medical Screen (RME) - General Chief Complaint: Rib Pain Stated Complaint: RIGHT FLANK PAIN,DIFFICULTY BREATHING Time Seen by Provider: 07/09/18 23:17 Mode of Arrival: Ambulatory Information source: Patient Notes: Patient is a 23-year-old female who presents with chief complaint of right flank pain, right rib pain, shortness of breath and sharp midsternal chest pain that has been ongoing for approximately 3 days. Patient reports the pain is worse when she takes a deep breath. Patient has associated nausea but no vomiting, diarrhea or fevers. Patient does report recent vaginal delivery on 11/18. Denies any history of DVT or PE, denies any recent travel, denies any current control use and patient is a non-smoker. Exam: Patient appears mildly anxious. Lung sounds clear to auscultation bilaterally. I have greeted and performed a rapid initial assessment of this patient. A comprehensive ED assessment and evaluation of the patient, analysis of test results and completion of the medical decision making process will be conducted by additional ED providers. Dictation of this chart was performed using voice recognition software; therefore, there may be some unintended grammatical errors. TRAVEL OUTSIDE OF THE [place] IN LAST 30 DAYS: No - Related Data Allergies/Adverse Reactions: No Known Allergies Allergy (Verified 06/12/18 00:40) Past Medical History Renal/ Medical History: Denies: Hx Peritoneal Dialysis Past Surgical History: Reports: Hx Appendectomy Physical Exam - Vital signs Vitals: Temp Pulse Resp BP Pulse Ox 98.9 F 66 18 136/94 H 99 07/09/18 22:33 07/09/18 22:33 07/09/18 22:33 07/09/18 22:33 07/09/18 22:33 Course - Vital Signs Vital signs: Temp Pulse Resp BP Pulse Ox 98.9 F 66 18 136/94 H 99 07/09/18 22:33 07/09/18 22:33 07/09/18 22:33 07/09/18 22:33 07/09/18 22:33
[2018-07-10 00:02] LABS: ABSOLUTE EOSINOPHILS # (AUTO) 0.3 10^3/uL (0.0-0.6); ABSOLUTE LYMPHOCYTES (AUTO) 3.4 10^3/uL (0.5-4.7); ABSOLUTE MONOCYTES (AUTO) 0.9 10^3/uL (0.1-1.4); ABSOLUTE NEUT (AUTO) 6.8 10^3/uL (1.7-8.2); BASOPHILS % (AUTO) 0.4 % (0-2); EOSINOPHILS % (AUTO) 2.2 % (0-6); HEMATOCRIT 40.7 % (36.0-47.0); HEMOGLOBIN 13.4 g/dL (12.0-15.5); MEAN CORPUSCULAR HEMOGLOBIN 29.5 pg (27.0-33.4); MEAN CORPUSCULAR VOLUME 89 fl (80-97); MONOCYTES % (AUTO) 7.9 % (3-13); PLATELET COUNT 306 10^3/uL (150-450); RED BLOOD COUNT 4.56 10^6/uL (3.72-5.28); RED CELL DISTRIBUTION WIDTH 13.7 % (11.5-14.0); SEGMENTED NEUTROPHILS % (AUTO) 59.5 % (42-78); TOTAL CELLS COUNTED % (AUTO) 100 %; WHITE BLOOD COUNT 11.5 10^3/uL (4.0-10.5)
[2018-07-10 00:16] LABS: PARTIAL THROMBOPLASTIN TIME 31.7 SEC (23.5-35.8); PROTHROMBIN TIME 12.6 SEC (11.4-15.4)
[2018-07-10 00:19] LABS: ALANINE AMINOTRANSFERASE 137 U/L (9-52); ALBUMIN 4.9 g/dL (3.5-5.0); ALKALINE PHOSPHATASE 108 U/L (38-126); ANION GAP 13 (5-19); ASPARTATE AMINO TRANSFERASE 82 U/L (14-36); BILIRUBIN,DIRECT 0.3 mg/dL (0.0-0.4); BILIRUBIN,TOTAL 0.8 mg/dL (0.2-1.3); BLOOD UREA NITROGEN 11 mg/dL (7-20); CALCIUM 10.1 mg/dL (8.4-10.2); CARBON DIOXIDE 28 mmol/L (22-30); CHLORIDE 102 mmol/L (98-107); GLUCOSE 94 mg/dL (75-110); LIPASE 118.4 U/L (23-300); POTASSIUM 4.4 mmol/L (3.6-5.0); SODIUM 143.4 mmol/L (137-145); TOTAL PROTEIN 8.8 g/dL (6.3-8.2)
[2018-07-10 00:33] LABS: APPEARANCE,URINE CLEAR; BILIRUBIN,URINE NEGATIVE (NEGATIVE); GLUCOSE, URINE NEGATIVE (NEGATIVE); KETONES,URINE NEGATIVE (NEGATIVE); LEUKOCYTE ESTERASE,URINE MODERATE (NEGATIVE); NITRITE,URINE NEGATIVE (NEGATIVE); PROTEIN,URINE NEGATIVE (NEGATIVE); URINE SPECIFIC GRAVITY 1.009; UROBILINOGEN,URINE NEGATIVE mg/dL (<2.0)
[2018-07-10 00:34] LABS: COLOR,URINE DARK YELLOW
[2018-07-10] MEDS ORDERED: MORPHINE SULFATE 10 MG/ML INJ IV ONE (00:45)
--- NOTE | 2018-07-10 01:53 | RADIOLOGY REPORT (SQ) ---
EXAM DESCRIPTION: US ABDOMEN LIMITED COMPLETED DATE/TME: 07/10/2018 00:36 CLINICAL HISTORY: ruq pain, sob COMPARISON: None. TECHNIQUE: Real-time sonographic images of the right upper abdomen were obtained using a curved multihertz transducer. FINDINGS: Pancreas: The visualized portions of the pancreas are unremarkable. Vascular: The visualized portions of the aorta and IVC are unremarkable. Liver: The liver has normal contour and echogenicity. Hepatopedal flow in the portal vein. The hepatic veins are patent. Findings confirmed with color and spectral Doppler imaging. The common bile duct measures 0.2 cm. Gallbladder: The gallbladder has a normal appearance. No gallstones identified. No wall thickening or pericholecystic fluid. Right Kidney: The right kidney measures 10.2 cm in length. No hydronephrosis, solid renal mass, or shadowing calculi. IMPRESSION: 1. No sonographic abnormality identified in the right upper abdomen.
[2018-07-10 03:21] VITALS: BP 132/87
[2018-07-10] MEDS ORDERED: METHOCARBAMOL 750 MG TABLET PO ONE (05:29)
[2018-07-10] MEDS ORDERED: OXYCODONE-ACETAMINOPHEN 5-325 MG TABLET PO ONE (05:39)
--- NOTE | 2018-07-10 05:39 | ER Document Report ---
ED General - General Chief Complaint: Rib Pain Stated Complaint: RIGHT FLANK PAIN,DIFFICULTY BREATHING Time Seen by Provider: 07/09/18 23:17 Mode of Arrival: Ambulatory Notes: Patient is a 23-year-old female who presents with chief complaint of right flank pain, right rib pain, shortness of breath and sharp midsternal chest pain that has been ongoing for approximately 3 days. Patient reports the pain is worse when she takes a deep breath. Patient has associated nausea but no vomiting, diarrhea or fevers. Patient does report recent vaginal delivery on 11/18. Denies any history of DVT or PE, denies any recent travel, denies any current control use and patient is a non-smoker. TRAVEL OUTSIDE OF THE [place] IN LAST 30 DAYS: No - Related Data Allergies/Adverse Reactions: No Known Allergies Allergy (Verified 07/10/18 03:23) Past Medical History - General Information source: Patient - Social History Smoking Status: Former Smoker Frequency of alcohol use: None Drug Abuse: None Family History: Reviewed & Not Pertinent Patient has suicidal ideation: No Patient has homicidal ideation: No - Medical History Medical History: Negative Renal/ Medical History: Denies: Hx Peritoneal Dialysis Past Surgical History: Reports: Hx Appendectomy - Immunizations Immunizations up to date: Yes Review of Systems - Review of Systems Constitutional: No symptoms reported EENT: No symptoms reported Cardiovascular: No symptoms reported Respiratory: No symptoms reported Gastrointestinal: No symptoms reported Genitourinary: No symptoms reported Female Genitourinary: No symptoms reported Musculoskeletal: See HPI Skin: No symptoms reported Hematologic/Lymphatic: No symptoms reported Neurological/Psychological: No symptoms reported Physical Exam - Vital signs Vitals: Temp Pulse Resp BP Pulse Ox 98.9 F 66 18 136/94 H 99 07/09/18 22:33 07/09/18 22:33 07/09/18 22:33 07/09/18 22:33 07/09/18 22:33 - Notes Notes: PHYSICAL EXAMINATION: GENERAL: Well-appearing, well-nourished and in no acute distress. HEAD: Atraumatic, normocephalic. EYES: Pupils equal round and reactive to light, extraocular movements intact, conjunctiva are normal. ENT: Nares patent, oropharynx clear without exudates. Moist mucous membranes. NECK: Normal range of motion, supple without lymphadenopathy LUNGS: Breath sounds clear to auscultation bilaterally and equal. No wheezes rales or rhonchi. HEART: Regular rate and rhythm without murmurs ABDOMEN: Soft, nondistended abdomen. Tenderness to palpation to right upper quadrant, no Woods's sign. No guarding, no rebound. No masses appreciated. Female : deferred Musculoskeletal: Normal range of motion, no pitting or edema. No cyanosis. Tenderness to palpation to right anterior lower ribs. NEUROLOGICAL: Cranial nerves grossly intact. Normal speech, normal gait. Normal sensory, motor exams PSYCH: Normal mood, normal affect. SKIN: Warm, Dry, normal turgor, no rashes or lesions noted. Course - Re-evaluation Re-evalutation: Patient was initially seen by this provider in triage and initial workup was initiated. After a full and thorough assessment was done on the patient, patient has point tenderness to the right lower ribs anteriorly. Patient also has tenderness to palpation to the right upper quadrant. Patient does report that the pain increases when she takes a deep breath. Patient denies any chest pain or shortness of breath although she did initially state that she had chest pain she now clarifies that this pain is only in the lower portion of her right ribs. Initial laboratory workup is unremarkable other than mildly elevated AST and ALT. Will hold off on doing a CTA for now as patient is not tachycardic, has no chest pain, no shortness of breath and has reproducible pain with palpation. Will send patient for a ultrasound of her gallbladder. Gallbladder ultrasound was negative for any acute findings. Patient remains without tachycardia or shortness of breath. Will add on a d-dimer and medicate patient for pain. Patient's d-dimer is negative. Patient is PERC negative. Wells score is 0. Unlikely that this is a PE due to patient's physical exam and reproducible pain on the ribs. Patient's pain was relieved after administration of Robaxin and Percocet. 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 Patient will be discharged home in stable condition. Patient given explicit instructions to return to the emergency department if she develops chest pain, shortness of breath or any other symptom that is concerning to her. Patient and at bedside verbalized understanding of same. - Vital Signs Vital signs: Temp Pulse Resp BP Pulse Ox 97.5 F 61 16 132/87 H 99 07/10/18 03:16 07/10/18 03:16 07/10/18 03:16 07/10/18 03:16 07/10/18 03:16 - Laboratory Result Diagrams: 07/09/18 23:25 07/09/18 23:25 Laboratory results interpreted by me: 07/09/18 07/09/18 07/09/18 23:25 23:25 23:25 WBC 11.5 H AST 82 H ALT 137 H Total Protein 8.8 H Ur Leukocyte Esterase MODERATE H Discharge - Discharge Clinical Impression: Rib pain Condition: Stable Disposition: HOME, SELF-CARE Additional Instructions: Your workup today was normal. If you continue to have abdominal pain or rib pain he may want to follow-up with your primary care provider to have a HIDA scan done. The symptoms you are having are suggestive of there being a problem with her gallbladder however your gallbladder ultrasound today was normal. Your lab work looked okay. Please return to the emergency department if you develop worsening pain, shortness of breath, chest pain, fever or any other symptom that is concerning to you. I am prescribing you some muscle relaxers as well as pain medication. Prescriptions: Hydrocodone/Acetaminophen [Hydrocodon-Acetaminophen 5-325] 1 each PO Q4H #12 tablet Methocarbamol [Robaxin 750 mg Tablet] 750 mg PO ASDIR PRN #40 tablet PRN Reason: Ondansetron [Zofran Odt 4 mg Tablet] 1 - 2 tab PO Q4H PRN #15 tab.rapdis PRN Reason: For Nausea/Vomiting Forms: Parent Work Note
== END 2018-07-10 08:04 | disposition home or self-care (01) ==
LOC: ER 21:52
DX: O90.89 Other complications of the puerperium, not elsewhere classified (principal); R07.81 Pleurodynia; R10.811 Right upper quadrant abdominal tenderness; R10.9 Unspecified abdominal pain; R06.02 Shortness of breath; R11.0 Nausea; Z87.891 Personal history of nicotine dependence; Z90.49 Acquired absence of other specified parts of digestive tract
CPT/HCPCS: 99284; 96374; 36415; 83690; 85025; 85610; 85730; 80053; 81001; 85379; 76705; J3490; J2270